=== PATIENT | male | born 1965 ===

== ENCOUNTER → 2017-06-15 | Outpatient (CLI) | payer OTHER | LOC: FIMAGING 18:59 | DX: S83.271A Complex tear of lateral meniscus, current injury, right knee, initial encounter (principal); S83.251A Bucket-handle tear of lateral meniscus, current injury, right knee, initial encounter; M22.41 Chondromalacia patellae, right knee ==

== ENCOUNTER → 2017-09-25 | Outpatient (CLI) | payer OTHER | LOC: FIMAGING 09:02 | DX: M23.022 Cystic meniscus, posterior horn of medial meniscus, left knee (principal); M23.042 Cystic meniscus, anterior horn of lateral meniscus, left knee ==